=== PATIENT | male | born 1975 | race Hispanic/Latino ===

== ENCOUNTER 2020-11-24 14:41 | Emergency (ER) | payer OTHER, SELFPAY ==
[2020-11-24 15:20] LABS: Absolute Lymphocytes (CBC) 1.4 K/uL (0.7-4.9); Basophils % 0.6 % (0-1.3); Lymphocytes % 22.9 % (15.3-44.8); MPV 6.6 fL (7.6-11.3); RBC Red Blood Cell Count 5.05 M/uL (4.33-5.43)
[2020-11-24 15:26] LABS: Protime INR 1.15
[2020-11-24] MEDS ORDERED: NA CHLORIDE 0.9% 1,000 ML ONE ×2 (15:27→16:37)
[2020-11-24 15:42] LABS: ALT/SGPT 24 U/L (12-78); AST/SGOT 15 U/L (15-37); Albumin 3.7 g/dL (3.4-5.0); Alkaline Phosphatase 50 U/L (45-117); BUN Blood Urea Nitrogen 12 mg/dL (7-18); Bicarbonate 27 mmol/L (21-32); Bilirubin Direct 0.2 mg/dL (0-0.2); Bilirubin Total 1.1 mg/dL (0.2-1.0); Glucose Level 111 mg/dL (74-106); Magnesium 2.1 mg/dL (1.8-2.4); NT PRO-BNP 15 pg/mL (<125); Potassium 3.3 mmol/L (3.5-5.1); Protein, Total 6.9 g/dL (6.4-8.2); Sodium Level 143 mmol/L (136-145); Troponin (Emerg Dept Use Only) < 0.02 ng/mL (0.0-0.045)
--- NOTE | 2020-11-24 15:51 | RAD REPORT ---
EXAM DESCRIPTION: RAD - Chest Single View - 11/24/2020 3:35 pm CLINICAL HISTORY: syncope COMPARISON: <Comparisons> FINDINGS: No evidence of edema or pneumonia. The heart size is within normal limits.No acute osseous abnormality. No significant pleural effusions or pneumothorax. IMPRESSION: No acute cardiopulmonary disease.
--- NOTE | 2020-11-24 15:52 | RAD REPORT ---
EXAM DESCRIPTION: RAD - Hand Left 3 View - 11/24/2020 3:35 pm CLINICAL HISTORY: Smash injury COMPARISON: None. FINDINGS: No fracture is identified. There is no dislocation or periosteal reaction noted. No foreign body or other soft tissue abnormalit y. IMPRESSION: Negative left hand examination.
--- NOTE | 2020-11-24 16:31 | RAD REPORT ---
EXAM DESCRIPTION: CT - CTHCSPWOC - 11/24/2020 4:16 pm CLINICAL HISTORY: Syncopal episode headache COMPARISON: None. TECHNIQUE: Axial 5 mm thick images of the head were obtained. Axial 2 mm thick images of the cervica l spine were obtained with sagittal and coronal reconstruction images generated and reviewed. All CT scans are performed using dose optimization technique as appropriate and may include automated exposure control or mA/KV adjustment according to patient size. FINDINGS: No acute intracranial hemorrhage. No mass effect or midline shift. No skull fracture is id entified. Paranasal sinuses are well aerated. No hydrocephalus. No acute large vascular territory inf arct. Cervical body height and alignment are normal. No disk space narrowing. No fracture or acute bony abn ormality. 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 Scattered dege nerative changes are noted. No paraspinal mass or hematoma. IMPRESSION: No acute intracranial abnormality. No cervical spine fracture or traumatic malalignment.
[2020-11-24 17:09] LABS: Urine Blood Negative (Negative); Urine Glucose Negative (Negative); Urine Protein 1+ (Negative); Urine Specific Gravity 1.025 (1.005-1.030)
[2020-11-24] MEDS ORDERED: POTASSIUM 25 MEQ EFFERV TAB ONE (17:22)
--- NOTE | 2020-11-24 17:24 | ER ---
Nurse's Notes [facility] Name: David Maldonado Age: 45 yrs Sex: Male : 1975 Arrival Date: 11/24/2020 Time: 14:45 Bed 27 Private MD: Diagnosis: Syncope Near;Hypotension, unspecified;Contusion of left hand Presentation: 11/24 14:45 Chief complaint: EMS states: SYNCOPE WITH FALL x2 AT WORK. Coronavirus screen: At this bp time, the client does not indicate any symptoms associated with coronavirus-19. Ebola Screen: No symptoms or risks identified at this time. Initial Sepsis Screen: Does the patient meet any 2 criteria? No. Patient's initial sepsis screen is negative. Does the patient have a suspected source of infection? No. Patient's initial sepsis screen is negative. Risk Assessment: Do you want to hurt yourself or someone else? Patient reports no desire to harm self or others. Onset of symptoms was November 24, 2020 at 14:00. Care prior to arrival: IV initiated. 20 GA, in the right wrist, Glucose check: 132. 14:45 Method Of Arrival: EMS: [facility] bp 14:45 Acuity: BETTIE 3 bp Historical: - Allergies: 14:51 No Known Allergies; bp - Home Meds: 14:51 Hydralazine Oral [Active]; bp - Immunization history:: Adult Immunizations up to date. - Social history:: Smoking status: Patient denies any tobacco usage or history of. Screenin:48 Abuse screen: Denies threats or abuse. Nutritional screening: No deficits noted. jd3 Tuberculosis screening: No symptoms or risk factors identified. Fall Risk Ambulatory Aid- None/Bed Rest/Nurse Assist (0 pts). Gait- Normal/Bed Rest/Wheelchair (0 pts) Mental Status- Oriented to own ability (0 pts). Total Brenner Fall Scale indicates No Risk (0-24 pts). Assessment: 14:50 General: Appears in no apparent distress. comfortable, Behavior is calm, cooperative, jd3 appropriate for age, anxious. Pain: Denies pain. Neuro: Level of Consciousness is awake, alert, obeys commands, Oriented to person, place, time, situation, Reports a syncopal episode Denies weakness blurred vision dizziness, paresthesias numbness diplopia. Cardiovascular: Denies chest pain, Capillary refill < 3 seconds Patient's skin is warm and dry. Rhythm is regular. Respiratory: Airway is patent Respiratory effort is even, unlabored, Respiratory pattern is regular, symmetrical, Denies cough, shortness of breath. GI: No signs and/or symptoms were reported involving the gastrointestinal system. : No signs and/or symptoms were reported regarding the genitourinary system. EENT: No signs and/or symptoms were reported regarding the EENT system. Derm: Skin is intact, Skin is dry, Skin is normal, Skin temperature is warm. Musculoskeletal: Circulation, motion, and sensation intact. Range of motion: intact in all extremities. 15:50 Reassessment: Patient appears in no apparent distress at this time. Patient and/or jd3 family updated on plan of care and expected duration. Pain level reassessed. Patient is alert, oriented x 3, equal unlabored respirations, skin warm/dry/pink. Patient states feeling better. 16:50 Reassessment: Patient appears in no apparent distress at this time. No changes from jd3 previously documented assessment. Patient and/or family updated on plan of care and expected duration. Pain level reassessed. Patient is alert, oriented x 3, equal unlabored respirations, skin warm/dry/pink. 17:48 Reassessment: Patient appears in no apparent distress at this time. Patient and/or jd3 family updated on plan of care and expected duration. Pain level reassessed. Patient is alert, oriented x 3, equal unlabored respirations, skin warm/dry/pink. Patient states feeling better. Vital Signs: 14:45 BP 80 / 50; Pulse 80; Resp 19; Temp 98.5; Pulse Ox 98% on R/A; bp 16:02 BP 99 / 74; Pulse 83; Resp 20 S; Pulse Ox 100% on R/A; jd3 17:48 BP 110 / 76; Pulse 80; Resp 19 S; Pulse Ox 100% on R/A; jd3 ED Course: 14:45 Patient arrived in ED. bp 14:45 Alexandru Tripp PA is PHCP. cp 14:45 Josesito Magdaleno MD is Attending Physician. cp 14:46 Mehdi Freedman RN is Primary Nurse. jd3 14:50 Triage completed. bp 14:58 Maintain EMS IV. IV with fluids infusing freely, with good blood return. bp 15:35 XRAY Chest (1 view) In Process Unspecified. EDMS 15:35 XRAY Hand LEFT 3 View In Process Unspecified. EDMS 16:16 CT Head C Spine In Process Unspecified. EDMS 17:30 No provider procedures requiring assistance completed. IV discontinued, intact, iw bleeding controlled, No redness/swelling at site. Pressure dressing applied. 17:48 Patient has correct armband on for positive identification. Bed in low position. Call j light in reach. Side rails up X2. Adult w/ patient. monitoring tech on. Pulse ox on. NIBP on. 17:49 Arm band placed on. jd3 Administered Medications: 15:12 Drug: NS 0.9% 1000 ml Route: IV; Rate: 1 bolus; Site: right wrist; jd3 17:52 Follow up: Response: No adverse reaction; IV Status: Completed infusion jd3 16:23 Drug: NS 0.9% 1000 ml Route: IV; Rate: 1 bolus; Site: right antecubital; jd3 17:20 Follow up: Response: No adverse reaction; IV Status: Completed infusion jd3 17:04 Drug: Potassium Effervescent Tablet 50 mEq Route: PO; jd3 17:52 Follow up: Response: No adverse reaction jd3 Outcome: 17:24 Discharge ordered by . cp 17:50 Discharged to home ambulatory, with family. jd3 17:50 Condition: stable 17:50 Discharge instructions given to patient, family, Instructed on discharge instructions, follow up and referral plans. Demonstrated understanding of instructions, follow-up care. 17:51 Patient left the ED. jd3 Signatures: Dispatcher [employer] Vanessa Prince, RN RN iw Alexandru Tripp PA PA Mehdi Carlin RN RN jGene Fleming RN RN bp
--- NOTE | 2020-11-24 17:24 | EDPHYS ---
Physician Documentation [facility] Name: David Maldonado Age: 45 yrs Sex: Male : 1975 Arrival Date: 11/24/2020 Time: 14:45 Bed 27 Private MD: ED Physician Josesito Magdaleno HPI: 11/24 15:01 This 45 yrs old Male presents to ER via EMS with complaints of Syncope. cp 15:01 The patient has experienced syncope, lost consciousness. Onset: The symptoms/episode cp began/occurred just prior to arrival. Duration: The patient has had multiple episodes, that last an unknown period of time. Context: occurred at work. 15:05 Patient presents to ER with complaints of syncopal episode x2 while at work. Patient cp reports he was at work when he smashed his hand with the piece of equipment. He reports as he was walking had an episode where he passed out, was able to get to his feet but then reportedly passed out again and was awoke by co worker. Patient denies any chest pain headache dizziness prior to episode of passing. Patient does report that he does work outside and has been working outside today. Historical: - Allergies: 14:51 No Known Allergies; bp - Home Meds: 14:51 Hydralazine Oral [Active]; bp - Immunization history:: Adult Immunizations up to date. - Social history:: Smoking status: Patient denies any tobacco usage or history of. ROS: 15:05 Constitutional: Negative for fever. cp 15:05 Eyes: Negative for injury, pain, redness, and discharge. cp 15:05 Cardiovascular: Negative for chest pain, edema, palpitations. 15:05 Respiratory: Negative for cough, shortness of breath, wheezing. 15:05 Abdomen/GI: Negative for abdominal pain, nausea, vomiting, and diarrhea. 15:05 MS/extremity: Positive for pain, of the left hand. 15:05 Neuro: Positive for headache, syncope, Negative for altered mental status, dizziness, seizure activity, weakness. 15:05 All other systems are negative. cp Exam: 14:58 ECG was reviewed by the Attending Physician. cp 15:10 Constitutional: The patient appears in no acute distress, alert, awake, cp non-diaphoretic, non-toxic, well developed, well nourished. 15:10 Head/Face: Normocephalic, atraumatic. cp 15:10 Eyes: Periorbital structures: appear normal, Pupils: equal, round, and reactive to light and accomodation, Extraocular movements: intact throughout, Conjunctiva: normal, no exudate, no injection, Sclera: no appreciated abnormality, Lids and lashes: appear normal, bilaterally. 15:10 ENT: External ear(s): are unremarkable, Ear canal(s): are normal, clear, TM's: dullness, bilaterally, Nose: is normal, Mouth: Lips: moist, Oral mucosa: moist, Posterior pharynx: Airway: no evidence of obstruction, patent. 15:10 Neck: C-spine: vertebral tenderness, is not appreciated, crepitus, is not appreciated, ROM/movement: pain, is not appreciated, limited range of motion, is not appreciated. 15:10 Chest/axilla: Inspection: normal, Palpation: is normal, no crepitus, no tenderness. 15:10 Cardiovascular: Rate: normal, Rhythm: regular, Heart sounds: murmur, not appreciated, Edema: is not appreciated, JVD: is not appreciated. 15:10 Respiratory: the patient does not display signs of respiratory distress, Respirations: normal, no use of accessory muscles, no retractions, labored breathing, is not present, Breath sounds: are clear throughout, no decreased breath sounds, no stridor, no wheezing. 15:10 Abdomen/GI: Inspection: abdomen appears normal, Bowel sounds: active, all quadrants, Palpation: abdomen is soft and non-tender, in all quadrants. 15:10 Back: pain, is absent, ROM is normal. 15:10 Musculoskeletal/extremity: Exam is negative for decreased range of motion, deformity, injury. 15:10 Neuro: Orientation: to person, place \T\ time. Mentation: is normal, Cerebellar function: is grossly normal, Motor: moves all fours, strength is normal, Sensation: is normal. Vital Signs: 14:45 BP 80 / 50; Pulse 80; Resp 19; Temp 98.5; Pulse Ox 98% on R/A; bp 16:02 BP 99 / 74; Pulse 83; Resp 20 S; Pulse Ox 100% on R/A; jd3 17:48 BP 110 / 76; Pulse 80; Resp 19 S; Pulse Ox 100% on R/A; jd3 MDM: 14:50 Patient medically screened. cp 15:05 Differential Diagnosis: aortic aneurysm, cardiac arrhythmia, cerebrovascular accident, cp GI bleed, seizure, sepsis, vasovagal episode. 17:24 Data reviewed: vital signs, nurses notes, lab test result(s), EKG, radiologic studies, cp plain films. 17:24 Test interpretation: by ED physician or midlevel provider: ECG, plain radiologic cp studies. Counseling: I had a detailed discussion with the patient and/or guardian regarding: the historical points, exam findings, and any diagnostic results supporting the discharge/admit diagnosis, lab results, radiology results, the need for outpatient follow up, a family practitioner, to return to the emergency department if symptoms worsen or persist or if there are any questions or concerns that arise at home. Response to treatment: the patient's symptoms have markedly improved after treatment, patient is well hydrated. VSS. Patient resting comfortably in exam room. Blood pressure 110 systolic after 2 liters fluids. Will discharge to home for continued monitoring. 11/24 14:58 Order name: Basic Metabolic Panel cp 11/24 14:58 Order name: CBC with Diff cp 11/24 14:58 Order name: LFT's; Complete Time: 15:54 cp 11/24 15:54 Interpretation: Normal except: BILIT 1.1. cp 11/24 14:58 Order name: Magnesium; Complete Time: 15:54 cp 11/24 14:58 Order name: NT PRO-BNP; Complete Time: 15:54 cp 11/24 15:55 Interpretation: NT PRO-BNP 15; Reviewed. cp 11/24 14:58 Order name: PT-INR; Complete Time: 15:39 cp 11/24 14:58 Order name: Troponin (emerg Dept Use Only); Complete Time: 15:54 cp 11/24 15:54 Interpretation: Within normal limits: TROPED < 0.02. cp 11/24 14:58 Order name: Urine Microscopic Only cp 11/24 14:58 Order name: UDS cp 11/24 14:58 Order name: Basic Metabolic Panel; Complete Time: 15:54 EDMS 11/24 15:54 Interpretation: Normal except: K 3.3; CL 108; GLUC 111; GFR 87; CA 8.3. cp 11/24 14:58 Order name: CBC with Automated Diff; Complete Time: 15:39 EDMS 11/24 15:39 Interpretation: Normal except: MPV 6.6. cp 11/24 16:57 Order name: D-Dimer j 11/24 16:57 Order name: D-Dimer; Complete Time: 17:21 EDMS 11/24 17:22 Interpretation: Reviewed. 11/24 17:09 Order name: Urine Dipstick-Ancillary; Complete Time: 17:21 EDMS 11/24 17:21 Interpretation: Normal except: UKET 1+; UPROT 1+. cp 11/24 14:46 Order name: EKG; Complete Time: 14:46 cp 11/24 14:46 Order name: EKG - Nurse/Tech; Complete Time: 14:52 cp 11/24 14:58 Order name: XRAY Chest (1 view); Complete Time: 15:54 cp 11/24 15:55 Interpretation: Report reviewed. 11/24 14:58 Order name: Cardiac monitoring; Complete Time: 14:58 cp 11/24 14:58 Order name: IV Saline Lock; Complete Time: 14:58 cp 11/24 14:58 Order name: Labs collected and sent; Complete Time: 15:12 cp 11/24 14:58 Order name: O2 Per Protocol; Complete Time: 14:58 cp 11/24 14:58 Order name: O2 Sat Monitoring; Complete Time: 14:58 cp 11/24 14:58 Order name: Urine Dipstick-Ancillary (obtain specimen); Complete Time: 17:11 11/24 15:02 Order name: XRAY Hand LEFT 3 View; Complete Time: 15:54 cp 11/24 15:54 Order name: CT Head C Spine; Complete Time: 16:32 cp 11/24 16:32 Interpretation: Reviewed report. EC:58 Rate is 77 beats/min. Rhythm is regular. SC interval is normal. QRS interval is normal. cp QT interval is normal. Interpreted by me. Reviewed by me. Administered Medications: 15:12 Drug: NS 0.9% 1000 ml Route: IV; Rate: 1 bolus; Site: right wrist; jd3 17:52 Follow up: Response: No adverse reaction; IV Status: Completed infusion jd3 16:23 Drug: NS 0.9% 1000 ml Route: IV; Rate: 1 bolus; Site: right antecubital; jd3 17:20 Follow up: Response: No adverse reaction; IV Status: Completed infusion jd3 17:04 Drug: Potassium Effervescent Tablet 50 mEq Route: PO; jd3 17:52 Follow up: Response: No adverse reaction jd3 Disposition Summary: 11/24/20 17:24 Discharge Ordered Location: Home cp Problem: new cp Symptoms: have improved cp Condition: Stable cp Diagnosis - Syncope Near cp - Hypotension, unspecified cp - Contusion of left hand cp Followup: cp - With: Private Physician - When: 2 - 3 days - Reason: Recheck today's complaints Discharge Instructions: - Discharge Summary Sheet cp - Hand Contusion cp - Syncope cp - Hypotension cp - Aspirin and Your Heart cp Forms: - Medication Reconciliation Form cp - Thank You Letter cp - Antibiotic Education cp - Prescription Opioid Use cp - Work release form eb Addendum: 11/26/2020 17:08 Co-signature as Attending Physician, Josesito Magdaleno MD. m a2 Signatures: Dispatcher [employer] EDAlexandru Chong PA PA cp Davies, Jonathon, RN RN jGene Fleming RN RN bp Alzahri, Mohammad, MD MD ma2
[2020-11-24 17:32] LABS: Barbiturates NEGATIVE (NEGATIVE); Benzodiazepines NEGATIVE (NEGATIVE); Cocaine NEGATIVE (NEGATIVE); METHAMPHETAM NEGATIVE (NEGATIVE); Methadone NEGATIVE (NEGATIVE); Opiates NEGATIVE (NEGATIVE); Phencyclidine NEGATIVE (NEGATIVE); THC Cannibis NEGATIVE (NEGATIVE)
[2020-11-24 17:35] LABS: Urine Bacteria <20 /HPF (NONE SEEN); Urine Mucus 1+ /HPF (NONE SEEN); Urine RBC <5 /HPF (NONE SEEN)
[2020-11-24 18:50] VITALS: TEMP 98.5
[2020-11-24 18:51] VITALS: O2SAT 100
[2020-11-24 18:53] VITALS: BP 110/76
== END 2020-11-24 17:51 | disposition home or self-care (01) ==
LOC: ER 14:41
DX: I95.9 Hypotension, unspecified (principal); S60.222A Contusion of left hand, initial encounter; W31.9XXA Contact with unspecified machinery, initial encounter; Y92.89 Other specified places as the place of occurrence of the external cause; Y99.8 Other external cause status
CPT/HCPCS: 96361; 93005; 85025; 80048; 36415; 83735; 85610; 85379; 80076; 84484; 83880; 80307; 70450; 72125; 71045; 73130; 96360; 99284; J7030 ×2; 81003; 81015